=== PATIENT | male | born 1950 | race Caucasian/White ===

== ENCOUNTER 2020-07-17 18:55 | Emergency (ER) | payer MEDICARE, OTHER ==
[2020-07-17] MEDS ORDERED: BABY ASPIRIN 81 MG CHEW PO ONE (19:02)
[2020-07-17] MEDS ORDERED: Zofran 4 MG/2 ML VIAL IV ONE (19:02)
[2020-07-17] MEDS ORDERED: TYLENOL EXTRA STRENGTH 500 MG PO STA (19:03)
[2020-07-17 19:04] VITALS: O2SAT 94
[2020-07-17] MEDS ORDERED: TORAdol 30 mg Injection IV ONE (19:04)
[2020-07-17] MEDS ORDERED: DECADRON 10MG INJ. IV ONE (19:05)
[2020-07-17] MEDS ORDERED: Sodium Chloride 0.9% 1000 ML 1,000 ML ONE (19:08)
[2020-07-17] MEDS ORDERED: BABY ASPIRIN 81 MG CHEW ONE (19:08)
[2020-07-17] MEDS ORDERED: TYLENOL EXTRA STRENGTH 500 MG ONE (19:08)
[2020-07-17] MEDS ORDERED: DECADRON 10MG INJ. ONE (19:08)
[2020-07-17] MEDS ORDERED: TORAdol 30 mg Injection ONE (19:08)
[2020-07-17] MEDS ORDERED: Zofran 4 MG/2 ML VIAL ONE (19:08)
[2020-07-17] MEDS ORDERED: Sodium Chloride 0.9% 1000 ML 1,000 ML IV SCH (19:15)
--- NOTE | 2020-07-17 19:18 | ERPHSYRPT ---
- History of Present Illness Time Seen by Provider: 07/17/20 18:56 Patient Subjective Stated Complaint: " I got the Covid virus and I haven't been getting better. I got the Covid infusion therapy and still running a fever and can't get rid of it. I called my doctor and he told me to come in and get some antibiotics. Triage Nursing Assessment: Pt presents to ER with fever. Pt is Covid+ 10 days ag o and hasn't got better. Pt denies shortness of breath, respirations are unlabored at this time. Pt lung sounds clear and equal throughout. States has had fever that he can't get rid of. Current temp 99.9. Denies nausea or vomiting, but states has had diarrhea. Pt skin is pink, warm, and dry. Pt is alert and oriented x3. Physician History: Patient here with continued fever. Not sure last dose of antipyretics. Temperature is 99.9. Diagnosed with Covid 12 days ago. He did receive the outpatient infusion 10 days ago. States he is overall feeling improved. However, he is feeling continued fevers. Discussed with his PCP. Sent in for further evaluation. No falls no trauma. No shortness of breath no chest pain. He is satting between 94% to 96% on room air. Is not taking any steroids at home. He has not been on any home antibiotics. Allergies/Adverse Reactions: No Known Drug Allergies Allergy (Verified 07/17/20 19:04) Home Medications: Hydrochlorothiazide 12.5 mg PO DAILY 07/07/20 [History] Lisinopril 20 mg [Zestril 20 MG] 20 mg PO DAILY 07/07/20 [History] Metoprolol Succinate [Toprol Xl] 50 mg PO DAILY 07/07/20 [History] allopurinoL [Allopurinol] 100 mg PO DAILY 07/07/20 [History] Hx Tetanus, Diphtheria Vaccination/Date Given: Yes Hx Influenza Vaccination/Date Given: Yes Hx Pneumococcal Vaccination/Date Given: Yes Immunizations Up to Date: Yes Travel Risk - International Travel Have you traveled outside of the country in past 3 weeks: No - Coronavirus Screening Are you exhibiting any of the following symptoms?: Yes Symptoms: Fever, Headaches/Body Aches/Fatigue Close contact with a COVID-19 positive Pt in past 14-21 Days: Yes - Review of Systems Constitutional: Fever, No Chills Eyes: No Symptoms Ears, Nose, & Throat: No Symptoms Respiratory: Cough, Dyspnea Cardiac: No Chest Pain, No Edema, No Syncope Abdominal/Gastrointestinal: No Abdominal Pain, No Nausea, No Vomiting, No Diarrhea Genitourinary Symptoms: No Dysuria Musculoskeletal: No Back Pain, No Neck Pain Skin: No Rash Neurological: No Dizziness, No Focal Weakness, No Sensory Changes Psychological: No Symptoms Endocrine: No Symptoms All Other Systems: Reviewed and Negative - Past Medical History Pertinent Past Medical History: Yes Neurological History: No Pertinent History ENT History: No Pertinent History Cardiac History: Hypertension Respiratory History: No Pertinent History Endocrine Medical History: Other Musculoskeletal History: Osteoarthritis GI Medical History: No Pertinent History History: No Pertinent History Psycho-Social History: No Pertinent History Male Reproductive Disorders: No Pertinent History Other Medical History: melanoma 2007, Kidney stones, Abnormal kidney function - Past Surgical History Past Surgical History: Yes Neuro Surgical History: No Pertinent History Respiratory: No Pertinent History Gastrointestinal: Hernia Repair Genitourinary: No Pertinent History Musculoskeletal: No Pertinent History Male Surgical History: No Pertinent History - Social History Smoking Status: Never smoker Exposure to second hand smoke: No Drug Use: none Patient Lives Alone: No - Nursing Vital Signs Nursing Vital Signs: Initial Vital Signs Temperature 99.9 F 07/17/20 18:59 Pulse Rate 96 H 07/17/20 18:59 Respiratory Rate 18 07/17/20 18:59 Blood Pressure 112/68 07/17/20 18:59 O2 Sat by Pulse Oximetry 94 L 07/17/20 18:59 Pain Scale Pain Intensity 0 - Physical Exam General Appearance: no apparent distress, alert Eye Exam: PERRL/EOMI, eyes nml inspection Ears, Nose, Throat Exam: normal ENT inspection, TMs normal, pharynx normal, moist mucous membranes Neck Exam: normal inspection, non-tender, supple, full range of motion Respiratory Exam: normal breath sounds, lungs clear, No respiratory distress Cardiovascular Exam: regular rate/rhythm, normal heart sounds, normal peripheral pulses Gastrointestinal/Abdomen Exam: soft, normal bowel sounds, No tenderness, No mass Back Exam: normal inspection, normal range of motion, No CVA tenderness, No vertebral tenderness Extremity Exam: normal inspection, normal range of motion, pelvis stable Neurologic Exam: alert, oriented x 3, cooperative, normal mood/affect, nml cerebellar function, nml station & gait, sensation nml, No motor deficits Skin Exam: normal color, warm, dry, No rash Lymphatic Exam: No adenopathy SpO2: 94 - Course Nursing assessment & vital signs reviewed: Yes EKG Interpreted by Me: Sinus Rhythm Ordered Tests: Active Orders 24 hr Category Date Time Status EKG-ER Only STAT Care 07/17/20 19:02 Active IV Insertion STAT Care 07/17/20 19:02 Active CHEST 1 VIEW (PORTABLE) Stat Exams 07/17/20 19:02 Ordered CBC W DIFF Stat Lab 07/17/20 19:30 Completed CMP Stat Lab 07/17/20 19:30 Completed Manual Differential NC Stat Lab 07/17/20 19:30 Completed NT PRO BNP Stat Lab 07/17/20 19:30 Completed TROPONIN Q3H Lab 07/17/20 19:30 Completed TROPONIN Q3H Lab 07/17/20 22:15 Ordered TROPONIN Q3H Lab 07/18/20 01:15 Ordered TROPONIN Q3H Lab 07/18/20 04:15 Ordered TROPONIN Q3H Lab 07/18/20 07:15 Ordered Medication Summary Generic Name Dose Route Start Last Admin Trade Name Freq PRN Reason Stop Dose Admin Sodium Chloride 1,000 mls @ 50 mls/hr 07/17/20 19:15 07/17/20 19:26 Sodium Chloride 0.9% 1000 Ml IV 08/16/20 19:14 50 mls/hr .Q20H MONI Administration Discontinued Medications Generic Name Dose Route Start Last Admin Trade Name Freq PRN Reason Stop Dose Admin Acetaminophen 1,000 mg 07/17/20 19:03 07/17/20 19:21 Tylenol Extra Strength 500 Mg PO 07/17/20 19:04 Not Given STAT STA Acetaminophen Confirm 07/17/20 19:08 Tylenol Extra Strength 500 Mg Administered 07/17/20 19:09 Dose 1,000 mg .ROUTE .STK-MED ONE Aspirin 324 mg 07/17/20 19:02 07/17/20 19:21 Baby Aspirin 81 Mg Chew PO 07/17/20 19:03 324 mg STAT ONE Administration Aspirin Confirm 07/17/20 19:08 Baby Aspirin 81 Mg Chew Administered 07/17/20 19:09 Dose 324 mg .ROUTE .STK-MED ONE Dexamethasone Sodium Phosphate 10 mg 07/17/20 19:05 07/17/20 19:32 Decadron 10mg Inj. IV 07/17/20 19:06 10 mg STAT ONE Administration Dexamethasone Sodium Phosphate Confirm 07/17/20 19:08 Decadron 10mg Inj. Administered 07/17/20 19:09 Dose 10 mg .ROUTE .STK-MED ONE Ketorolac Tromethamine 30 mg 07/17/20 19:04 07/17/20 19:31 Toradol 30 Mg Injection IV 07/17/20 19:05 30 mg STAT ONE Administration Ketorolac Tromethamine Confirm 07/17/20 19:08 Toradol 30 Mg Injection Administered 07/17/20 19:09 Dose 30 mg .ROUTE .STK-MED ONE Ondansetron HCl 4 mg 07/17/20 19:02 07/17/20 19:30 Zofran 4 Mg/2 Ml Vial IV 07/17/20 19:03 4 mg STAT ONE Administration Ondansetron HCl Confirm 07/17/20 19:08 Zofran 4 Mg/2 Ml Vial Administered 07/17/20 19:09 Dose 4 mg .ROUTE .STK-MED ONE Lab/Rad Data: Laboratory Result Diagrams 07/17/20 19:30 07/17/20 19:30 Laboratory Results 07/17/20 07/17/20 07/17/20 Range/Units 19:30 19:30 19:30 WBC 11.2 H (4.0-10.5) K/mm3 RBC 5.15 (4.1-5.6) M/mm3 Hgb 15.5 (12.5-18.0) gm/dl Hct 47.5 (42-50) % MCV 92.2 (78-100) fl MCH 30.1 (26-32) pg MCHC 32.6 (32-36) g/dl RDW 13.2 (11.5-14.0) % Plt Count 207 (150-450) K/mm3 MPV 10.4 (7.5-11.0) fl Sodium 137 (137-145) mmol/L Potassium 3.6 (3.5-5.1) mmol/L Chloride 101 (98-107) mmol/L Carbon Dioxide 28 (22-30) mmol/L Anion Gap 11.1 (5-15) MEQ/L BUN 41 H (9-20) mg/dL Creatinine 1.56 H (0.66-1.25) mg/dL Estimated GFR 47.0 ML/MIN Glucose 163 H (74-106) mg/dL Calcium 9.6 (8.4-10.2) mg/dL Total Bilirubin 1.10 (0.2-1.3) mg/dL AST 31 (17-59) U/L ALT 27 (0-50) U/L Alkaline Phosphatase 52 (38-126) U/L Troponin I < 0.012 (0.000-0.034) ng/mL NT-Pro-B Natriuret Pep 220 (0-900) pg/mL Serum Total Protein 7.5 (6.3-8.2) g/dL Albumin 3.8 (3.5-5.0) g/dL - Progress Progress: improved Progress Note: 07/17/20 19:18 Will obtain basic labs, EKG, fluids, troponin. Differential diagnosis includes STEMI, non-STEMI, pneumonia, Covid, electrolyte abnormality. 07/17/20 21:03 Fever has improved in the emergency department. EKG shows no STEMI. Patient's chest x-ray demonstrates consistent Covid pattern. Patient is not hypoxic. Satting 96% on room air. No tachycardia. Patient improved with fluids and medication here. Overall I do feel patient is safe to discharge home for continued close home observation. He can return here anytime for new or changing symptoms or for admission. Plan of care was discussed with patient and all questions answered. The patient is agreeable to be discharged home and both verbal and printed discharge instructions were provided.The patient agreed to seek outpatient follow up as discussed. The patient was given strict instructions to return to the emergency department for worsening symptoms or any other emergent concerns. The patient verbalized understanding. Counseled pt/family regarding: lab results, diagnosis, need for follow-up, rad results - Departure Clinical Impression: COVID-19 Condition: Stable Critical Care Time: No Referrals: ARISTEO CORREIA MD [Primary Care Provider] - Instructions: Fever, Adult (DC) Additional Instructions: Stop talking ibuprofen as you have elevated kidney function. This will contribute to that. Call your PCP tomorrow for follow up. Return for new or changing symptoms.
[2020-07-17 19:35] LABS: Hematocrit 47.5 % (42-50); Hemoglobin 15.5 gm/dl (12.5-18.0); Mean Cell Volume 92.2 fl (78-100); Mean Corpuscular Hemoglobin 30.1 pg (26-32); Mean Corpuscular Hgb Concent. 32.6 g/dl (32-36); Mean Platelet Volume 10.4 fl (7.5-11.0); Platelet Count 207 K/mm3 (150-450); Red Blood Count 5.15 M/mm3 (4.1-5.6); Red Cell Distribution Width 13.2 % (11.5-14.0); White Blood Count 11.2 K/mm3 (4.0-10.5)
[2020-07-17 20:15] LABS: ALBUMIN 3.8 g/dL (3.5-5.0); ANION GAP 11.1 MEQ/L (5-15); BILIRUBIN,TOTAL 1.1 mg/dL (0.2-1.3); Calcium 9.6 mg/dL (8.4-10.2); Creatinine 1 1.56 mg/dL (0.66-1.25); Potassium 3.6 mmol/L (3.5-5.1); Total Protein 7.5 g/dL (6.3-8.2)
[2020-07-17 21:09] VITALS: BP 102/66; PULSE 82
[2020-07-17 21:28] LABS: Eosinophil 1 % (0.00-3.0); Lymphocytes 17 % (24-44); Monocyte 5 % (0.0-12.0); Neutrophils 77 % (36.-66.); Total Cells Counted 100
[2020-07-17 21:29] LABS: Platelet Estimate NORMAL (NORMAL)
--- NOTE | 2020-07-18 08:50 | XRAY ---
Indication: Short of breath. Positive Covid 19. Comparison: August 24, 2019. Portable chest demonstrates developing subtle bibasilar infiltrates versus atelectasis. Remaining heart and upper lungs unremarkable. Bony thorax intact again with degenerative changes.
== END 2020-07-17 21:20 | disposition home or self-care (01) ==
LOC: ED 18:55
DX: U07.1 COVID-19 (principal); Z79.899 Other long term (current) drug therapy; R50.9 Fever, unspecified; R51.9 Headache, unspecified
CPT/HCPCS: 36000; 36415; 71045; 80053; 83880; 84484; 85025; 93005; 96360; 96361; 96374; 96375; 99284; J1100; J1885; J2405; A9270-GY

== ENCOUNTER 2024-03-23 10:10 | Day surgery (SDC) | payer MEDICARE, OTHER ==
--- NOTE | 2024-03-22 08:57 | HP ---
HISTORY AND PHYSICAL HISTORY OF PRESENT ILLNESS: The patient is a 74-year-old male who presents for endoscopy. Patient is having some upper heartburn and reflux. He is uncomfortable when he is laying down. He is also due for a colonoscopy at this time. PAST MEDICAL HISTORY: Hypertension, hyperlipidemia, gout, melanoma, arthritis. PAST SURGICAL HISTORY: Skin cancer excision, hand surgery, inguinal hernia repair. FAMILY HISTORY: None. SOCIAL HISTORY: Negative. MEDICATIONS: Aspirin, naproxen, hydrochlorothiazide, allopurinol, metoprolol, lisinopril. ALLERGIES: Latex. REVIEW OF SYSTEMS: CONSTITUTIONAL: Denies fever or chills. CHEST: Denies shortness of breath. CARDIOVASCULAR: Denies any chest pain. ABDOMEN: Reports epigastric pain. PHYSICAL EXAMINATION: GENERAL: No acute distress. CARDIOVASCULAR: Regular rate and rhythm. RESPIRATORY: Nonlabored. No shortness of breath. ABDOMEN: Soft. ASSESSMENT: 1) Epigastric pain. 2) Severe reflux. 3) Screening colonoscopy. PLAN: EGD and colonoscopy with Dr. Sj Green. This report was dictated for Dr. Green by Elda Padilla NP.
[2024-03-23] MEDS: Lactated Ringers 1,000 ML IV SCH (10:37)
[2024-03-23 10:45] VITALS: RESP 16
[2024-03-23] MEDS ORDERED: Reglan 10 MG/2 ML ONE (12:09)
[2024-03-23] MEDS ORDERED: Pepcid 20 MG VIAL IV ONE (12:09)
[2024-03-23] MEDS: Pepcid 20 MG VIAL IV ONE (12:14)
[2024-03-23] MEDS: Reglan 10 MG/2 ML IV ONE (12:18)
[2024-03-23] MEDS ORDERED: DIPRIVAN 200 MG/20 ML IV ONE ×2 (12:27→12:44)
[2024-03-23] MEDS ORDERED: Versed 2 MG/2 ML Injection ONE (12:27)
[2024-03-23 13:40] VITALS: PULSE 67; TEMP 98.8
[2024-03-23 13:41] VITALS: BP 108/54; O2SAT 93
--- NOTE | 2024-03-26 19:57 | OP ---
SURGERY DATE/TIME: 03/23/2024 2480 - 5600 PREOPERATIVE DIAGNOSIS: Severe reflux. No recent endoscopic examination. The patient is also due for a followup of polyps. POSTOPERATIVE DIAGNOSES: 1. Severe sigmoid diverticulitis. 2. Grade 3 GERD. PROCEDURE: Esophagogastroduodenoscopy with grade 3 gastroesophageal reflux disease. He is able to reflux from his EG junction all the way up to his larynx. Colonoscopic examination completed to the cecum. FINDINGS: Severe sigmoid diverticulosis. Moderate elongation and dilatation of the colon. SURGEON: Sj Green MD. ANESTHESIA: General. COMPLICATIONS: None. CONDITION: Stable. DESCRIPTION OF PROCEDURE AND FINDINGS: Patient was taken to endoscopy suite, left lateral decubitus position. He was not laid all the way down. He does not sleep lying down at night. He sleeps in a chair. He had a recent dental experience where he actually laid flat for a minute and could not really breathe, soft stuff was coming up. He clearly refluxes. He was left on a couple of pillows at about 8 to 10 inches and reflux was coming up almost to the pharyngoesophageal junction in that position. I am sure it is coming up and just rolling into the cords. He had a little bit of spit on the cords initially. Despite this, I do not see any absolute damage or significant damage to the cords. There is no severe irritation and there are no polyps, but they are certainly getting refluxed on. EG junction grade 3 GERD. No hiatal hernias. Fundus, body, and antrum normal. Pylorus normal. Duodenal bulb normal. Second portion normal. Scope withdrawing loops upon itself. No hiatal hernia. He would benefit from a stomach wrap but he is 77 years old. He is quite a high-risk in general. Anal digital examination, prostate was satisfactory. Scope was introduced. Scope was then advanced through the rectosigmoid, advanced through the sigmoid. There was about 40 cm severe diverticulosis. Upper left colon and across the transverse, with care and patience, this was manipulated within about 4 inches of the cecum. The cecum was basically well seen. Cecum and ascending colon were normal. Scope was withdrawn. All mucosal lesions were noted. Patient tolerated the procedure satisfactorily. He is 77 years old. I do not think he needs another screening exam at all with his colon. He may need further EGDs at some point. At this time, he is going to try to totally avoid the dental procedure which he could not lie flat for. He is also getting a hip procedure, but this would be with intubation which would alleviate the problem.
== END 2024-03-23 13:50 | disposition home or self-care (01) ==
LOC: SDC 10:10
PROVIDERS: ATTEND Surgery
DX: Z12.11 Encounter for screening for malignant neoplasm of colon (principal); Z09 Encounter for follow-up examination after completed treatment for conditions other than malignant neoplasm; Z86.010 Personal history of colon polyps; K21.9 Gastro-esophageal reflux disease without esophagitis; K57.30 Diverticulosis of large intestine without perforation or abscess without bleeding
CPT/HCPCS: 93005; 99100; J2250; J2704